=== PATIENT | male | born 1965 | race Caucasian/White ===

== ENCOUNTER 2023-11-23 12:25 | Emergency (ER) | payer MEDICARE, SELFPAY ==
[2023-11-23 12:27] VITALS: BP 162/103
[2023-11-23 13:27] VITALS: BP 145/81
[2023-11-23 13:34] LABS: % Basophils 0.6 % (0-2); % Eosinophils 1.1 % (0-6); % Immature Granulocytes 0.8 % (0-0.5); % Lymphocytes 17.9 % (20.5-51.1); % Monocytes 5.4 % (1.7-9.3); % Neutrophils 74.2 % (42.2-75.2); Absolute Eosinophils 0.1 10^3/uL (0-0.7); Absolute Immature Granulocytes 0.1 10^3/uL (0-0.05); Absolute Lymphocytes 1.3 10^3/uL (1.2-3.4); Absolute Monocytes 0.4 10^3/uL (0.1-0.6); Absolute Neutrophils 5.3 10^3/uL (1.4-6.5); Hematocrit 41.3 % (39.0-52.0); Hemoglobin 14.8 g/dL (13.0-18.0); Mean Corp Hgb Conc. 35.8 g/dL (33.0-37.0); Mean Corpuscular Hgb 33.9 pg (27.0-31.0); Mean Corpuscular Volume 94.7 fL (80.0-94.0); Mean Platelet Volume 9.1 fL (7.4-10.4); Nucleated Red Blood Cells % 0 % (-); Platelet Count 207 10^3/uL (130-400); Red Blood Cell Count 4.36 10^6/uL (4.70-6.10); White Blood Cell Count 7.2 10^3/uL (4.8-10.8)
--- NOTE | 2023-11-23 13:34 | ED.GENMED ---
History of Present Illness
General
Chief Complaint: Ear Problem
Source: patient
Time Seen by Provider: 11/23/23 12:39
Travel History
Have you had any contact with someone who has COVID-19?: No
Do you have any symptoms of coronavirus? Fever > 100 degrees, chills, cough, shortness of breath, sore throat, loss of taste or smell, muscle aches, or headache?: No
History of Present Illness
History of Present Illness:
58-year-old male with past medical history of hypertension, previous renal cancer status post right nephrectomy presenting to the emergency department for evaluation of right-sided ear pain/erythema that he states has been ongoing for around a month
but states he has also had a year or so of symptoms including pain to the right occipital/temporal region which she states he is not sure if this is related. He notes that he has brought this up to his primary care physician in the past but that
his primary care provider in April and he has yet to make an appointment with his new primary care provider. Patient went to urgent care around a month ago and was diagnosed with a cellulitis of the right ear for which he completed a
10-day course of but reports no relief with this. Patient denies any fevers, chills, rigors. He states that he is very concerned that he could have a potential cancer given his history as well as family history with multiple different types of
malignancies.
Past History
Past History
ED Past Medical History: Cancer, GERD and HTN
ED Past Surgical History: Appendectomy and Other
Social History
Tobacco: Non-smoker
Alcohol: None
Drug: None
Personal: Single
Living: with family
Review of Systems
Review of Systems
All Other Systems: ROS reviewed and negative except as documented in HPI and ROS
Phy Exam
Physical Exam
Physical Exam:
GENERAL: Alert , in no apparent distress
EYE: Clear conjunctiva
NECK: Supple, no significant adenopathy.
ENT: o/p clr, mmm. Right helix is erythematous and mildly edematous with minimal tenderness. The mastoid is non tender and nonbulging. Right TM is partially visualized from the 6:00 to 12 o'clock position but unable to see from 12:00 to 5:00 due
to cerumen. Left external ear and TM are within normal limits
CARDIAC: Regular rate and rhythm .
LUNGS: Clear breath sounds bilaterally, no acute respiratory distress, no wheezes/rales/rhonchi
NEUROLOGICAL: Alert and oriented
SKIN: Warm and dry, skin intact.
MUSCULOSKELETAL: No edema, well perfused.
PSYCH: Normal and appropriate interaction.
Course
Orders/Labs/Results
Orders:
Orders
11/23/23 13:12
CT Facial Bones W/o Iv Contras Urgent
Comment:
Reason For Exam: possible mastoiditis
11/23/23 13:22
Basic Metabolic Panel Urgent
Complete Blood Count/With Diff Urgent
Abnormal Lab Results
11/23/23
13:22
RBC 4.36 L 10^6/uL
(4.70-6.10)
MCV 94.7 H fL
(80.0-94.0)
MCH 33.9 H pg
(27.0-31.0)
Abs Immat Gran (auto) 0.1 H 10^3/uL
(0-0.05)
Immature Gran % 0.8 H %
(0-0.5)
Lymphocytes % 17.9 L %
(20.5-51.1)
11/23/23 13:22
11/23/23 13:22
Vital Signs
Initial and Last Documented VS:
Initial Vital Signs
Temp Pulse Resp BP Pulse Ox
98.2 F 78 18 162/103 100
11/23/23 12:27 11/23/23 12:27 11/23/23 12:27 11/23/23 12:27 11/23/23 12:27
Last Documented Vital Signs
Temp Pulse Resp BP Pulse Ox
98.2 F 60 18 145/81 99
11/23/23 12:27 11/23/23 13:27 11/23/23 13:27 11/23/23 13:27 11/23/23 13:27
MDM/Problems Addressed
Differential Diagnosis Includes:
Dermatitis, less concern for cellulitis given lack of movement with p.o. antibiotics, otitis media, otitis externa, mastoiditis
MDM/Problems Addressed:
58-year-old male present emergency department for a multitude of chronic symptoms, feels as if the right ear is worsening prompting him to come to the ER today. Has lack of outpatient follow-up due to his primary care passing away however he has
not made an appointment with his new primary care physician yet. Will obtain labs and a CT of the facial bones to ensure no mastoiditis. I do anticipate need for continued outpatient workup and will provide patient with information for ENT.
*Radiology
Radiology exam reviewed: radiology read reviewed
*Pulse Oximetry
Patient hypoxic: no
*Critical Care Note
Total Time (30-74mins, 75-104mins- exclusive of procedures): Not Applicable
Data Reviewed
Review of Other/Old Records Reveals: Labs
Source: patient
Patient Management
Escalation/DeEscalation of care consider admission/obs:
Patient CT scan did not show any evidence for mastoiditis. It did note the soft tissue swelling of the right ear which could be an inflammatory or infectious process. I reviewed this CT scan report with the patient. He notes that he only had the
Keflex for about 3 days which would certainly be a subtherapeutic dose and a potential reason as to why his infection did not improve. Will give patient a 10-day course of Keflex to be taken 3 times daily. I provided him with information for ENT
to follow-up with. He is aware of return precautions to the emergency department but otherwise stable for discharge home.
ED Attending Note
-
Portions of this chart may have been created with voice recognition software.� Occasional wrong word or��sound alike� substitutions may have occurred due to the inherent limitations of voice recognition software.
Discharge Plan
Departure
Patient Disposition: Home (Routine Discharge)
Date of Disposition: 11/23/23
Time of Disposition: 14:48
Patient with high blood pressure during this ER visit?: Yes
Discharge Problem:
Cellulitis of right ear
Instructions: Cellulitis (Skin Infection), Adult (DC)
Prescriptions:
New
cephalexin 500 mg tablet
500 mg PO TID 10 Days Qty: 30 0RF
No Action
difluprednate 0.05 % Drops
1 drp OPHTHALMIC (EYE) QID
Rx Instructions:
Left eye
colchicine 0.6 mg Tablet
0.6 mg PO BID Qty: 180 0RF
ibuprofen 600 mg Tablet
600 mg PO TID Qty: 21 0RF
nicotine 21 mg/24 hr Patch 24 Hour
21 mg transdermal DAILY Qty: 28 0RF
Referrals:
Chilo Yeh MD [Active] - (ENT - Please call for appointment)
NONE,* [Family Provider] -
Interventions
Interventions:
*Risk Screen - Suicide Last Done: 11/23/23 12:27
*General Assessment Last Done: 11/23/23 12:27
*Neglect/Abuse Screening Last Done: 11/23/23 12:27
ED- Fall Risk Assessment Last Done: 11/23/23 13:43
*ED COVID-19 Vaccine History Last Done: 11/23/23 12:27
*Nursing Disposition Last Done: 11/23/23 14:52
Discharge Date and Time
Discharge Date/Time: 11/23/23 14:53
Print Language: FRENCH
[2023-11-23 13:45] LABS: Blood Urea Nitrogen 15 mg/dl (9-20); Calcium 9.6 mg/dl (8.4-10.2); Carbon Dioxide 29 mmol/L (22-30); Chloride 106 mmol/L (98-107); Glucose 74 mg/dl (70-99); Potassium 4.5 mmol/L (3.5-5.1); Sodium 139 mmol/L (135-145); eGFR > 60.00
== END 2023-11-23 14:53 | disposition home or self-care (01) ==
LOC: EMR 12:25
PROVIDERS: Physician Assistant Medical; EMERGENCY PHYSICIAN Emergency Medicine
DX: H60.11 Cellulitis of right external ear (principal); I10 Essential (primary) hypertension
CPT/HCPCS: 99284; 70486; 80048; 85025

== ENCOUNTER 2024-09-01 14:50 | Inpatient (IN) | payer MEDICARE, SELFPAY ==
[2024-09-01 09:53] VITALS: BP 163/92
--- NOTE | 2024-09-01 10:43 | ED.GENMED ---
History of Present Illness
<Radha Alexis PA-C - Last Filed: 09/01/24 23:59>
General
Chief Complaint: Eye Problems
Source: patient
Exam Limitations: none
Time Seen by Provider: 09/01/24 10:23
Nursing documentation reviewed up to this point in time: agreed with
History of Present Illness
History of Present Illness:
Patient is a 59 year old male w/ hx RA presenting with pain and swelling of right eye. Patient reports around 2 PM yesterday noticing mild blurry vision/pain in his right eye that he describes as a 'straining'. This morning�patient states he woke
up at 2 AM and his eye was swollen shut. He reports significant pain/deep pressure sensation behind his right eye and feels like it is being 'pulled forward'. Patient has noticed mild redness within the eye and clear drainage from the eye. He
does feel like he has blurry/decreased vision in his right eye in comparison to his left. Patient states he has felt chills all morning and had 1 episode of vomiting. He denies any fever.
Patient denies any headache, double vision, ear pain. No recent URI symptoms.
Past History
<Radha Alexis PA-C - Last Filed: 09/01/24 23:59>
Past History
ED Past Medical History: Cancer, GERD and HTN
ED Past Surgical History: Appendectomy and Other
Social History
Tobacco: Non-smoker
Alcohol: None
Drug: None
Personal: Single
Living: with family
Review of Systems
<Radha Alexis PA-C - Last Filed: 09/01/24 23:59>
Review of Systems
Allergies reviewed?: Yes
All Other Systems: ROS reviewed and negative except as documented in HPI and ROS
Phy Exam
<Radha Alexis PA-C - Last Filed: 09/01/24 23:59>
Physical Exam
Physical Exam:
Vitals: Hypertensive, otherwise stable vital signs. Afebrile
General: Patient is well appearing, no acute distress
Skin: Warm and dry, no rashes or lesions
Head: Normocephalic, atraumatic. No tenderness over temporal region bilaterally.
Eyes: Mild periorbital swelling and erythema of right upper lid with injected right eye and chemosis. Mild proptosis of right eye. Left eye without any periorbital swelling, erythema, or tenderness. Right eye pain with EOMs, although intact.
Cornea is clear without opacities. Anterior chambers are clear without hyphema or Hypopyon, PERRL, no APD.
Fundoscopic exam is unremarkable with no papilledema. IOP is R 19, L 17.
Throat: Protecting airway
Neck: Normal ROM, no cervical spine tenderness, no meningismus
Cardiac: Regular rate and rhythm, no murmurs.
Pulm: Normal respiratory effort, no wheezes, rales, rhonchi heard on exam.
Abdomen: No abdominal tenderness.
Extremities: No evidence of cyanosis or edema
Neuro: AAOx3. CN II-XII intact. No focal neurologic deficits.
Psychiatric: Normal affect.
Course
<Radha Alexis PA-C - Last Filed: 09/01/24 23:59>
Orders/Labs/Results
Orders:
Orders
09/01/24 Breakfast
Regular
At Your Request: Full Participation
09/01/24 10:[address] [CT Orbits With Iv Contrast] Urgent
Comment:
Reason For Exam: right eye pain, swelling
Visual Acuity- Treatment ONCE
Acetaminophen [Tylenol] 650 mg PO NOW STA
09/01/24 11:12
Complete Blood Count/With Diff Urgent
Comprehensive Metabolic Panel Urgent
09/01/24 13:57
Ketorolac [Toradol] 15 mg IV NOW STA
09/01/24 14:06
Vancomycin [Vancocin] 1,500 mg 0.9% Sodium Chloride 500 ml [Nss] 500 ml IV NOW
09/01/24 14:08
Ampicillin/Sulbactam 3 G [Unasyn] 3 gm 0.9% Sodium Chloride 100 ml [Nss] 100 ml IV NOW
09/01/24 14:30
Admit/Transfer Patient As Directed
Co-Sign Provider:
Level of Care: Inpatient admission
Assign to:: Medical/Surgical
Physician / Group: ginger
Diagnosis: periorbital cellulitis
Reason for Hospitalization: periorbital cellulitis
Expected length of stay greater than two midnights?: Yes
ELOS- Estimated Length of Stay in days: 3
I certify the patient meets the requirements for IP care: Yes
09/01/24 14:31
Code Status As Directed
Resuscitation Status: Full Code
PRN Pain Medication Management As Directed
May give lesser potent ordered pain med per pt: Yes
preference::
Protocol:: Medication orders for pain may be administered in a
manner that supports deferring to patient preference
when the pt is:
- Requesting an ordered lesser potent pain medication.
Least to most potent pain medications are defined
as: acetaminophen < NSAID < tramadol < opioids
(morphine, oxycodone, hydromorphone).
- Requesting a lesser dose of the same medication IF
ORDERED.
- Requesting a less intrusive route of administration
if both routes are prescribed by the provider (PO <
IV).
09/01/24 16:24
Oxycodone [Roxicodone] 5 mg PO Q4HPRN PRN
09/01/24 19:16
Acetaminophen [Tylenol] 650 mg PO Q4HPRN PRN
Bisacodyl [Dulcolax] 10 mg RECTAL [id number] PRN
Docusate W/Senna [Senokot-S] 1 tablet PO BIDPRN PRN
Polyethylene Glycol Powder [Miralax] 17 grams PO DAILYPRN PRN
09/01/24 19:16
Activity As Directed
Activity Level: As Tolerated
Venous Foot Pumps As Directed
Location: Bilateral feet
Vital Signs As Directed
Frequency: Per unit guidelines
DX Deep Vein Thrombosis Video Routine
09/02/24 00:00
Ampicillin/Sulbactam 3 G [Unasyn] 3 gm 0.9% Sodium Chloride 100 ml [Nss] 100 ml IV Q6
Abnormal Lab Results
09/01/24
11:12
RBC 4.35 L 10^6/uL
(4.70-6.10)
MCV 96.8 H fL
(80.0-94.0)
MCH 34.3 H pg
(27.0-31.0)
Abs Immat Gran (auto) 0.1 H 10^3/uL
(0-0.05)
Immature Gran % 0.7 H %
(0-0.5)
Neutrophils % 75.6 H %
(42.2-75.2)
Lymphocytes % 17.5 L %
(20.5-51.1)
Creatinine 0.6 L mg/dL
(0.7-1.3)
Glucose 112 H mg/dl
(70-99)
Albumin 5.1 H g/dl
(3.5-5.0)
09/01/24 11:12
09/01/24 11:12
Vital Signs
Initial and Last Documented VS:
Initial Vital Signs
Temp Pulse Resp BP Pulse Ox
97.9 F 71 16 163/92 99
09/01/24 09:53 09/01/24 09:53 09/01/24 09:53 09/01/24 09:53 09/01/24 09:53
Last Documented Vital Signs
Temp Pulse Resp BP Pulse Ox
97.8 F 60 17 120/75 95
09/02/24 07:50 09/02/24 07:50 09/02/24 07:50 09/02/24 07:50 09/02/24 07:50
<Marc Guerrero MD - Last Filed: 09/02/24 10:12>
Orders/Labs/Results
Orders:
Orders
09/01/24 Breakfast
Regular
At Your Request: Full Participation
09/01/24 10:[address] [CT Orbits With Iv Contrast] Urgent
Comment:
Reason For Exam: right eye pain, swelling
Visual Acuity- Treatment ONCE
Acetaminophen [Tylenol] 650 mg PO NOW STA
09/01/24 11:12
Complete Blood Count/With Diff Urgent
Comprehensive Metabolic Panel Urgent
09/01/24 13:57
Ketorolac [Toradol] 15 mg IV NOW STA
09/01/24 14:06
Vancomycin [Vancocin] 1,500 mg 0.9% Sodium Chloride 500 ml [Nss] 500 ml IV NOW
09/01/24 14:08
Ampicillin/Sulbactam 3 G [Unasyn] 3 gm 0.9% Sodium Chloride 100 ml [Nss] 100 ml IV NOW
09/01/24 14:30
Admit/Transfer Patient As Directed
Co-Sign Provider:
Level of Care: Inpatient admission
Assign to:: Medical/Surgical
Physician / Group: [email or web address]
Diagnosis: periorbital cellulitis
Reason for Hospitalization: periorbital cellulitis
Expected length of stay greater than two midnights?: Yes
ELOS- Estimated Length of Stay in days: 3
I certify the patient meets the requirements for IP care: Yes
09/01/24 14:31
Code Status As Directed
Resuscitation Status: Full Code
PRN Pain Medication Management As Directed
May give lesser potent ordered pain med per pt: Yes
preference::
Protocol:: Medication orders for pain may be administered in a
manner that supports deferring to patient preference
when the pt is:
- Requesting an ordered lesser potent pain medication.
Least to most potent pain medications are defined
as: acetaminophen < NSAID < tramadol < opioids
(morphine, oxycodone, hydromorphone).
- Requesting a lesser dose of the same medication IF
ORDERED.
- Requesting a less intrusive route of administration
if both routes are prescribed by the provider (PO <
IV).
09/01/24 16:24
Oxycodone [Roxicodone] 5 mg PO Q4HPRN PRN
09/01/24 19:16
Acetaminophen [Tylenol] 650 mg PO Q4HPRN PRN
Bisacodyl [Dulcolax] 10 mg RECTAL [id number] PRN
Docusate W/Senna [Senokot-S] 1 tablet PO BIDPRN PRN
Polyethylene Glycol Powder [Miralax] 17 grams PO DAILYPRN PRN
09/01/24 19:16
Activity As Directed
Activity Level: As Tolerated
Venous Foot Pumps As Directed
Location: Bilateral feet
Vital Signs As Directed
Frequency: Per unit guidelines
DX Deep Vein Thrombosis Video Routine
09/02/24 00:00
Ampicillin/Sulbactam 3 G [Unasyn] 3 gm 0.9% Sodium Chloride 100 ml [Nss] 100 ml IV Q6
Abnormal Lab Results
09/01/24
11:12
RBC 4.35 L 10^6/uL
(4.70-6.10)
MCV 96.8 H fL
(80.0-94.0)
MCH 34.3 H pg
(27.0-31.0)
Abs Immat Gran (auto) 0.1 H 10^3/uL
(0-0.05)
Immature Gran % 0.7 H %
(0-0.5)
Neutrophils % 75.6 H %
(42.2-75.2)
Lymphocytes % 17.5 L %
(20.5-51.1)
Creatinine 0.6 L mg/dL
(0.7-1.3)
Glucose 112 H mg/dl
(70-99)
Albumin 5.1 H g/dl
(3.5-5.0)
09/01/24 11:12
09/01/24 11:12
Vital Signs
Initial and Last Documented VS:
Initial Vital Signs
Temp Pulse Resp BP Pulse Ox
97.9 F 71 16 163/92 99
09/01/24 09:53 09/01/24 09:53 09/01/24 09:53 09/01/24 09:53 09/01/24 09:53
Last Documented Vital Signs
Temp Pulse Resp BP Pulse Ox
97.8 F 60 17 120/75 95
09/02/24 07:50 09/02/24 07:50 09/02/24 07:50 09/02/24 07:50 09/02/24 07:50
<Radha Alexis PA-C - Last Filed: 09/01/24 23:59>
MDM/Problems Addressed
Differential Diagnosis Includes:
Not limited to: Viral conjunctivitis, bacterial conjunctivitis, preseptal cellulitis, orbital cellulitis, etc.
MDM/Problems Addressed:
59 year old male with erythema, pain, and swelling of right eye with mild impairment in vision. No fevers or chills. Patient does feel as if symptoms have progressed somewhat rapidly since onset <24 hours ago. Hypertensive, otherwise vitals stable.
Patient afebrile. Physical exam as above. Patient with obvious preseptal cellulitis of right eye with chemosis and injection of right eye. + pain with EOMs. IOP wnl. Concern for orbital cellulitis. Will check labs and CT orbit w/ contrast. Will
closely monitor and reassess.
Update: Labs reviewed. No clinically significant abnormalities. CT reviewed - findings consistent with preseptal cellulitis of right eye although also noted mild proptosis of right eye and stranding of right medial rectus. On reexamination - right
eye appears clinically worse (increasing erythema, edema surrounding eye as well as more noticable proptosis) within 2 hours since initial exam. Given rapid expansion along with immunosuppression on MTX for rheumatoid arthritis - concern for
developing orbital cellulitis. Will admit patient for IV abx and further management. IV vancomycin and unasyn initiated in ED.
Chronic conditions affecting care:
Hypertension
Acute Exacerbation and/or Progression of Chronic Illness:
Acutely hypertensive
<Radha Alexis PA-C - Last Filed: 09/01/24 23:59>
*Radiology
Radiology exam reviewed: radiology read reviewed
*Pulse Oximetry
Patient hypoxic: no
*EKG
Interpreted by ED Provider?: NA
*Copyman Interpretation
Rate: Copyman- N/A
*Critical Care Note
Total Time (30-74mins, 75-104mins- exclusive of procedures): Not Applicable
<Radha Alexis PA-C - Last Filed: 09/01/24 23:59>
Patient Management
Discussion with other providers: Hospitalist
Escalation/DeEscalation of care consider admission/obs:
Admit for IV antibiotics
ED Attending Note
<Radha Alexis PA-C - Last Filed: 09/01/24 23:59>
-
Portions of this chart may have been created with voice recognition software.� Occasional wrong word or��sound alike� substitutions may have occurred due to the inherent limitations of voice recognition software.
<Marc Guerrero MD - Last Filed: 09/02/24 10:12>
ED Attending Note
Patient seen and examined by attending physician: Yes
ED Attending Note:
Patient with history of rheumatoid arthritis, presents to ED secondary to sudden onset of right eye swelling, redness, and pain yesterday afternoon. Denies trauma. Denies fever or chills. Patient reports mild blurry vision since onset of his
symptoms. Denies nausea or vomiting. Denies sick contact. Denies recent illness. Denies previous history of similar symptoms.
Physical Exam
General: mild painful distress, not acutely ill. afebrile
Head: nc/at. eomi
Neck: supple. no meningeal signs.
Neuro: alert and oriented x 3. no focal neurological deficits
Skin: right eye periorbital redness and swelling noted with tenderness. Injected conjunctiva noted.
Psychiatric: well kept. interactive and cooperative
Extremities: no edema. no calf tenderness.
CT orbit report reviewed and discussed with patient. Redness and swelling appear to be worsening during observation ED. As such, patient will be admitted for IV antibiotics.
Visual acuity checked. Intraocular pressure within normal limits.
Discharge Plan
Departure
Patient Disposition: Admit
Date of Disposition: 09/01/24
Time of Disposition: 13:59
Presentation/result/management discussed w/ accepting MD/DO: Hospitalist
Discharge Problem:
Preseptal cellulitis of right eye
Interventions
Interventions:
*Risk Screen - Suicide Last Done: 09/01/24 20:30
*General Assessment Last Done: 09/01/24 11:15
*Neglect/Abuse Screening Last Done: 09/01/24 09:53
ED- Fall Risk Assessment Last Done: 09/01/24 11:10
*ED COVID-19 Vaccine History Last Done: 09/01/24 20:30
*Nursing Disposition Last Done: 09/01/24 19:25
Discharge Date and Time
Discharge Date/Time: 09/01/24 19:15
[2024-09-01 11:06] VITALS: BMI 19.8
[2024-09-01] MEDS: TYLENOL 650 MG PO (11:16)
[2024-09-01 11:22] LABS: % Basophils 0.3 % (0-2); % Eosinophils 0.6 % (0-6); % Immature Granulocytes 0.7 % (0-0.5); % Lymphocytes 17.5 % (20.5-51.1); % Monocytes 5.3 % (1.7-9.3); % Neutrophils 75.6 % (42.2-75.2); Absolute Immature Granulocytes 0.1 10^3/uL (0-0.05); Absolute Lymphocytes 1.3 10^3/uL (1.2-3.4); Absolute Monocytes 0.4 10^3/uL (0.1-0.6); Absolute Neutrophils 5.4 10^3/uL (1.4-6.5); Hematocrit 42.1 % (39.0-52.0); Hemoglobin 14.9 g/dL (13.0-18.0); Mean Corp Hgb Conc. 35.4 g/dL (33.0-37.0); Mean Corpuscular Hgb 34.3 pg (27.0-31.0); Mean Corpuscular Volume 96.8 fL (80.0-94.0); Mean Platelet Volume 8.8 fL (7.4-10.4); Nucleated Red Blood Cells % 0 % (-); Platelet Count 187 10^3/uL (130-400); Red Blood Cell Count 4.35 10^6/uL (4.70-6.10); White Blood Cell Count 7.2 10^3/uL (4.8-10.8)
[2024-09-01 11:41] LABS: ALT (SGPT) 14 U/L (0-50); AST (SGOT) 17 U/L (17-59); Albumin 5.1 g/dl (3.5-5.0); Alkaline Phosphatase 98 U/L (38-126); Blood Urea Nitrogen 12 mg/dl (9-20); Calcium 9.8 mg/dl (8.4-10.2); Carbon Dioxide 26 mmol/L (22-30); Chloride 104 mmol/L (98-107); Estimated Creatinine Clearance 124 ml/min; Glucose 112 mg/dl (70-99); Potassium 4.6 mmol/L (3.5-5.1); Sodium 141 mmol/L (135-145); Total Bilirubin 0.9 mg/dl (0.2-1.3); Total Protein 8.1 g/dl (6.3-8.2); eGFR > 60.00
[2024-09-01 12:00] VITALS: BP 139/84
--- NOTE | 2024-09-01 14:05 | HPS.HSE ---
Family Physician
-
Family Physician: * NONE
Chief Complaint
-
Right eye pain and swelling
History of Present Illness
59 year old male w/ hx RA presenting with pain and swelling of right eye. yesterday he noticed mild blurry vision/pain in his right eye. he was straining his eye to read. today morning he woke up with swollen eye. He reports significant pain/deep
pressure sensation behind his right eye. Patient has noticed mild redness within the eye and clear drainage from the eye. He does feel like he has blurry vision in his right eye. patient vomited once today. he is having SERNA. denied fever, chest
pain,sob. denied
abdominal pain,n,v,d. denied dysuria or hematuria.
CT with the impression of Some minor right preorbital soft tissue swelling suggesting preorbital cellulitis. Patient received Vanco and Zosyn in ER. Admitted for further management
Medical History
Past Medical History
Past Medical History: Reports Other
Additional Past Medical History:
Rheumatoid arthritis
Renal carcinoma
Osteoarthritis
Past Surgical History: Reports Other
Additional Past Surgical History:
Right-sided nephrectomy
Social History
Tobacco: Smoker
Alcohol: Occasional
Drug: None
Family History
Family History: Not pertinent
Allergies / Home Medications
Allergies reflects when Allergies were last updated in [facility].
Home Medications with original date entered in [facility]
Allergy/Medication List:
Allergies
Allergy/AdvReac Type Severity Reaction Status Date / Time
No Known Allergies Allergy Verified 11/23/23 12:29
Home Medications
difluprednate 0.05 % eye drops 1 drp ophthalmic (eye) QID Eye condition 11/23/22
colchicine 0.6 mg tablet 0.6 mg PO BID #180 tabs 11/24/22
ibuprofen 600 mg tablet 600 mg PO TID #21 tabs 11/24/22
nicotine 21 mg/24 hr daily transdermal patch 21 mg transdermal DAILY #28 ea 11/24/22
cephalexin 500 mg tablet 500 mg PO TID 10 days #30 tabs 11/23/23
Review of Systems
-
Constitutional: Reports No Symptoms
EENT: Reports Other (righ eye swollen and red)
Respiratory: Reports No Symptoms
Cardiac: Reports No Symptoms
Abdomen/GI: Reports No Symptoms
: Reports No Symptoms
Musculoskeletal: Reports No Symptoms
Skin: Reports No Symptoms
Neurological: Reports No Symptoms
Endocrine: Reports No Symptoms
Hematologic/Lymphatic: Reports No Symptoms
Psych: Reports No Symptoms
Physical Exam
Vital Signs
Vital Signs
Temp Pulse Resp BP Pulse Ox
97.9 F 64 17 163/92 99
09/01/24 09:53 09/01/24 11:15 09/01/24 11:15 09/01/24 09:53 09/01/24 11:15
Physical Exam
General: Well Developed, Well Nourished and No Apparent Distress
HEENT: NormoCephalic, Moist mucous membranes, Atraumatic and Other (right eye swollen and red)
Respiratory: Clear
Cardiac: S1/S2 and Regular Rhythm; No Murmur or Rub
GI: Soft, Non Tender, Non Distended and Normal Bowel Sounds; No Organomegaly
Rectal: Deferred by Provider
Musculoskeletal: No Clubbing, No Cyanosis and No Edema
Skin: No Rash
Neuro: AO x 3 and Nonfocal/grossly intact
Psych: Calm
Laboratory Results
-
09/01/24 11:12
09/01/24 11:12
Laboratory Results
Total Bilirubin 0.9 mg/dl (0.2-1.3) 09/01/24 11:12
AST 17 U/L (17-59) 09/01/24 11:12
ALT 14 U/L (0-50) 09/01/24 11:12
Alkaline Phosphatase 98 U/L (38-126) 09/01/24 11:12
Data Reviewed
-
CT Scan: Report Reviewed by me
Lab Data: Labs Reviewed by me
Impression/Plan
-
#periorbital cellulitis of right eye concerning for developing orbital cellulitis
-iv vanco and Unasyn continued
-CT orbits with Some minor right periorbital soft tissue swelling suggesting periorbital cellulitis.Soft tissue stranding and slight prominence/enlargement of the right medial rectus muscle and CT findings suggesting some right sided proptosis.
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 Unfortunately, other etiologies such as orbital Lymphoma cannot be excluded.
-Tylenol continued for fever and pain
-oxy continued for pain
#History of Right-Sided Renal Cell Carcinoma s/p Right Nephrectomy
Left Solitary Kidney per patient
#Osteoarthritis
Chronic Pain Syndrome
#Current Tobacco Use
-Nicotine patch
#DVT prophylaxis
-scd
#CODE status
-full code
[2024-09-01] MEDS: TORADOL 15 MG IV (14:19)
[2024-09-01] MEDS: VANCOCIN 530 MG IV (14:20)
--- NOTE | 2024-09-01 15:10 | W.PN.UPDATE ---
Update Note
Progress Note Update
Attending note
Patient seen independently
59 year old man with pain and swelling of right eye. Yesterday he had mild blurry vision/pain in his right eye. Today morning he woke up with a very swollen eye. He reports significant pain/deep pressure sensation behind his right eye. Patient has
noticed redness within the eye and drainage from the eye. He vomited once today. he is having a SERNA. He denied fever, chest pain,sob. denied abdominal pain,n,v,d. denied dysuria or hematuria. CT in the ED showed:
Some minor right preorbital soft tissue swelling suggesting preorbital cellulitis.
Soft tissue stranding and slight prominence/enlargement of the right medial rectus muscle and CT findings suggesting some right sided proptosis.
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
Unfortunately, other etiologies such as orbital Lymphoma cannot be excluded.
Patient received Vanco and Zosyn in ER. ID consulted in the ED.
Past Medical History
Rheumatoid arthritis
Renal carcinoma
Osteoarthritis
Past Surgical History: Reports Other
Additional Past Surgical History:
Right-sided nephrectomy
Physical Exam
General: Well Developed, Well Nourished and No Apparent Distress
HEENT: NormoCephalic, Moist mucous membranes, Atraumatic left and right eye swollen and red with drainage
Respiratory: Clear
Cardiac: S1/S2 and Regular Rhythm; No Murmur or Rub
GI: Soft, Non Tender, Non Distended and Normal Bowel Sounds; No Organomegaly
Psych: Calm
Impression/Plan
1. periorbital cellulitis of right eye concerning for developing orbital cellulitis
-iv vanco and Unasyn continued
-Tylenol continued for fever and pain
-oxy continued for pain
Please see [employer] note for full details on
History of Right-Sided Renal Cell Carcinoma s/p Right Nephrectomy
Osteoarthritis
Chronic Pain Syndrome
Current Tobacco Use
DVT prophylaxis -scd
CODE status -full code
[2024-09-01] MEDS: UNASYN IV ×2 (16:23→23:53)
[2024-09-01] MEDS: ROXICODONE 5 MG PO (16:30)
[2024-09-01] MEDS: NICODERM TRANSDERMAL 21 MG TRANSDERM (16:32)
[2024-09-01] MEDS: FLUSH (NSS) 1 FLUSH IV (16:32)
[2024-09-01] MEDS: DILAUDID 1 MG IV ×2 (18:16→21:54)
[2024-09-01 18:18] VITALS: BP 190/91
[2024-09-01] MEDS: APRESOLINE 10 MG IV (18:27)
[2024-09-01 19:15] VITALS: BP 139/100; BMI 19.4
--- NOTE | 2024-09-01 19:15 | W.PN.UPDATE ---
Update Note
Progress Note Update
d/w ophthalmology, recommended to start steroids.
--- NOTE | 2024-09-01 19:20 | PHA.VAN.IN ---
Assessment
- Assessment
Renal Function: Appears similar to baseline
Concomitant Antimicrobials: ampicillin/sulbactam
AUC Dosing Plan
- Dosing Variables
Dosing Weight (kg): 77.6
Dosing CrCl (ml/min): 124
Vd coefficient (L/kg): 0.7
Utilized IBW for dosing weight for BMI < 20
- Empiric Dosing
Initial / Loading Dose: 1500mg - 09/01 14:20
Maintenance Regimen: Vanc 1250mg Q12H starting 09/02 0600
Estimated AUC (mcg*h/mL): 463
Estimated Peak (mcg*h/mL): 31.8
Estimated Trough (mcg/ml): 10.3
Estimated Half Life (H): 6.5
- Monitoring
No levels ordered at this time: consider levels in next few days
Pharmacokinetics Vancomycin I
- -
Patient Age: 59
Patient Sex: Male
Vancomycin Day #: 1
Indication: Skin And Soft Tissue
Requesting Provider: Rey Fofana
Pertinent Antimicrobial Allergies:
NKDA
Height / Weight:
Height 6 ft
Actual Weight 66 kg
IBW in k.6
Pertinent Past Medical History: BMI ~19.7, R. RCC s/p R. Nephrectomy
- Vital Signs / Lab Results
Temp Pulse Resp BP Pulse Ox
97.9 F 68 18 190/91 95
09/01/24 09:53 09/01/24 18:18 09/01/24 18:18 09/01/24 18:18 09/01/24 17:15
Lab Results - Hematology
09/01/24
11:12
WBC 7.2
Lab Results - Chemistry
09/01/24
11:12
BUN 12
Creatinine 0.6 L
Estimated Creat Clear 124
Albumin 5.1 H
[2024-09-01] MEDS: ZOFRAN 4 MG IV (20:06)
[2024-09-01] MEDS: DECADRON 4 MG IV (20:07)
[2024-09-01] MEDS: DECADRON 8 MG IV (21:54)
[2024-09-01] MEDS: TUMS CHEWABLE TABLET 200 MG PO (22:50)
[2024-09-01 23:00] VITALS: BP 124/73
[2024-09-02] MEDS: UNASYN IV ×3 (05:12→18:26)
[2024-09-02] MEDS: ROXICODONE 5 MG PO (05:38)
[2024-09-02] MEDS: VANCOCIN 275 MG IV ×2 (05:51→19:26)
[2024-09-02 07:50] VITALS: BP 120/75
[2024-09-02] MEDS: NICODERM TRANSDERMAL 21 MG TRANSDERM (08:11)
[2024-09-02] MEDS: DELTASONE 60 MG PO (08:12)
[2024-09-02] MEDS: DILAUDID 1 MG IV ×2 (11:16→18:30)
--- NOTE | 2024-09-02 12:05 | W.PN.HOSP.TC ---
Today's Communication/Plan
-
c/w IV Abx
c/w Steroid
For eye doctor evaluation
Assessment / Plan
Assessment / Plan
Physical Exam
General: Well Developed, Well Nourished and No Apparent Distress
HEENT: NormoCephalic, Moist mucous membranes, Atraumatic and Other (right eye swollen and red)
Respiratory: Clear
Cardiac: S1/S2 and Regular Rhythm; No Murmur or Rub
GI: Soft, Non Tender, Non Distended and Normal Bowel Sounds; No Organomegaly
Rectal: Deferred by Provider
Musculoskeletal: No Clubbing, No Cyanosis and No Edema
Skin: No Rash
Neuro: AO x 3 and Nonfocal/grossly intact
Psych: Calm
#periorbital cellulitis of right eye concerning for developing orbital cellulitis
He feels better , less pain in the eye
c/w IV vanco and Unasyn
-CT orbits with Some minor right periorbital soft tissue swelling suggesting periorbital cellulitis.Soft tissue stranding and slight prominence/enlargement of the right medial rectus muscle and CT findings suggesting some right sided proptosis.
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 Unfortunately, other etiologies such as orbital Lymphoma cannot be excluded.
-Tylenol continued for fever and pain
-oxy continued for pain
- per eye doctor consult in ER , recommended oral prednsione
- Consulted eye doctor
#History of Right-Sided Renal Cell Carcinoma s/p Right Nephrectomy
Left Solitary Kidney per patient
#Osteoarthritis
Chronic Pain Syndrome
On weekly methotrexate and daily folic acid supplement
#Current Tobacco Use
-Nicotine patch
#DVT prophylaxis
-scd
#CODE status
-full code
Total time spent to see the patient, examine the patient, review data and lab results, discuss treatment plan with patient and nursing staff around 55 minutes
Anticipated Discharge: > 48 hours
Subjective/Interval History
-
Date of Service: September 02, 2024
Objective Data
-
Vital Signs:
Vital Signs
Temp Pulse Resp BP Pulse Ox
97.8 F 60 17 120/75 95
09/02/24 07:50 09/02/24 07:50 09/02/24 07:50 09/02/24 07:50 09/02/24 07:50
I&O
09/01/24 09/02/24 09/03/24
06:59 06:59 06:59
Intake Total 480 / 480 420 / 420
Balance 480 / 480 420 / 420
--- NOTE | 2024-09-02 12:06 | PHA.VAN.FU ---
Vancomycin Assessment / Plan
- Assessment
Renal Function: No New Labs Today
In the past 24 hrs, patient has been: Afebrile
Concomitant Antimicrobials: ampicillin/sulbactam
- Dosing Plan
Continue: vancomycin 1250 mg q12h - first dose 09/02 0600 after 1500 mg LD 09/01 15:35
- Monitoring Plan
No level(s) ordered at this time: consider levels after 1800 dose 09/03/24
- Follow Up
Pharmacy will continue to follow.
Vancomycin Follow UP
- -
Patient Age: 59
Patient Sex: Male
Vancomycin Day #: 2
Indication: Skin And Soft Tissue
Requesting Provider: Rey Fofana
Pertinent Antimicrobial Allergies:
NKDA
Height / Weight:
Height 6 ft
Actual Weight 64.892 kg
IBW in k.6
Pertinent Past Medical History: BMI ~19.7, R. RCC s/p R. Nephrectomy
- Vital Signs / Lab Results
Temp Pulse Resp BP Pulse Ox
97.8 F 60 17 120/75 95
09/02/24 07:50 09/02/24 07:50 09/02/24 07:50 09/02/24 07:50 09/02/24 07:50
Lab Results - Hematology
09/01/24
11:12
WBC 7.2
Lab Results - Chemistry
09/01/24
11:12
BUN 12
Creatinine 0.6 L
Estimated Creat Clear 124
Albumin 5.1 H
--- NOTE | 2024-09-02 12:55 | CM ---
Patient seen bedside.
IA completed.
Patient lives with SO in 2nd floor appartment, no elevator.
Slow onn steps.
Patient does not use and AD.
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
patient Independent prior to admission..
Patient does not have a PCP, list provided.
Per patient currenty on IV anbx but anticipates transition to oral.
Patient prefers [facility] in [place].
Plan: home no needs anticiapted.
[2024-09-02] MEDS: FOLVITE 1 MG PO (12:59)
[2024-09-02 15:25] VITALS: BP 133/74
[2024-09-02 23:00] VITALS: BP 132/75
[2024-09-02] MEDS: PEPCID 20 MG PO (23:04)
[2024-09-03] MEDS: UNASYN IV ×4 (00:11→17:22)
[2024-09-03] MEDS: ROXICODONE 5 MG PO ×5 (01:07→22:17)
[2024-09-03] MEDS: VANCOCIN 275 MG IV ×2 (05:55→18:11)
[2024-09-03] MEDS: DELTASONE 60 MG PO (06:24)
[2024-09-03] MEDS: PROTONIX 40 MG PO (06:24)
[2024-09-03] MEDS: FOLVITE 1 MG PO (06:24)
[2024-09-03] MEDS: NICODERM TRANSDERMAL 21 MG TRANSDERM (06:24)
[2024-09-03 07:20] VITALS: BP 136/86
--- NOTE | 2024-09-03 09:15 | PHA.VAN.FU ---
Vancomycin Assessment / Plan
- Assessment
Renal Function: No New Labs Today
In the past 24 hrs, patient has been: Afebrile
Concomitant Antimicrobials: ampicillin/sulbactam
- Dosing Plan
Continue: Vanc 1250mg Q12H
- Monitoring Plan
No level(s) ordered at this time: consider levels in ext few days
Monitoring Comments: possible conversion to PO antibiotics tomorrow
- Follow Up
Pharmacy will continue to follow.
Vancomycin Follow UP
- -
Patient Age: 59
Patient Sex: Male
Vancomycin Day #: 3
Indication: Skin And Soft Tissue
Requesting Provider: Rey Fofana
Pertinent Antimicrobial Allergies:
NKDA
Height / Weight:
Height 6 ft
Actual Weight 64.892 kg
IBW in k.6
Pertinent Past Medical History: BMI ~19.7, R. RCC s/p R. Nephrectomy
- Vital Signs / Lab Results
Temp Pulse Resp BP Pulse Ox
98.2 F 54 16 136/86 98
09/03/24 07:20 09/03/24 07:20 09/03/24 07:20 09/03/24 07:20 09/03/24 07:20
Lab Results - Hematology
09/01/24
11:12
WBC 7.2
Lab Results - Chemistry
09/01/24
11:12
BUN 12
Creatinine 0.6 L
Estimated Creat Clear 124
Albumin 5.1 H
--- NOTE | 2024-09-03 10:52 | W.PN.HOSP.TC ---
Today's Communication/Plan
-
dc in am
taper prednisone
CT head
c/w IV Abx for another 24 hours then dc on oral ABx.
Assessment / Plan
Assessment / Plan
Physical Exam
General: Well Developed, Well Nourished and No Apparent Distress
HEENT: NormoCephalic, Moist mucous membranes, Atraumatic and Other (right eye swollen and red)
Respiratory: Clear
Cardiac: S1/S2 and Regular Rhythm; No Murmur or Rub
GI: Soft, Non Tender, Non Distended and Normal Bowel Sounds; No Organomegaly
Rectal: Deferred by Provider
Musculoskeletal: No Clubbing, No Cyanosis and No Edema
Skin: No Rash
Neuro: AO x 3 and Nonfocal/grossly intact
Psych: Calm
#periorbital cellulitis of right eye concerning for developing orbital cellulitis
He feels better , less pain in the eye
Good clinical improvement over night, will do another 24 hours of IV ABX then dc home
d/w eye doctor Dr Pereira who evaluated the patient on 09/02 at bed side. Ok to taper oral steroid, f/w in office
c/w IV vanco and Unasyn
-CT orbits with Some minor right periorbital soft tissue swelling suggesting periorbital cellulitis.Soft tissue stranding and slight prominence/enlargement of the right medial rectus muscle and CT findings suggesting some right sided proptosis.
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 Unfortunately, other etiologies such as orbital Lymphoma cannot be excluded.
-Tylenol continued for fever and pain
- Appreciate Dr Pereira help
# Chronic dizziness
pt was concerned and asked for further studies, was told he had vertigo. He requested mRI brain, i d/w him, recommenced to d/w his doctors as OP since he is still having orbital edema, prefer to let inflammation subside. Will do head CT scan as pt
was anxious.
#History of Right-Sided Renal Cell Carcinoma s/p Right Nephrectomy
Left Solitary Kidney per patient
#Osteoarthritis
Chronic Pain Syndrome
On weekly methotrexate and daily folic acid supplement
#Current Tobacco Use
-Nicotine patch
#DVT prophylaxis
-scd. Add SQ heparin
#CODE status
-full code
Total time spent to see the patient, examine the patient, review data and lab results, discuss treatment plan with patient and nursing staff around 55 minutes
Anticipated Discharge: Within 24 hours
Subjective/Interval History
-
Date of Service: September 03, 2024
less swelling and pain in right eye
Objective Data
-
Vital Signs:
Vital Signs
Temp Pulse Resp BP Pulse Ox
98.2 F 54 16 136/86 98
09/03/24 07:20 09/03/24 07:20 09/03/24 07:20 09/03/24 07:20 09/03/24 07:20
I&O
09/02/24 09/03/24 09/04/24
06:59 06:59 06:59
Intake Total 480 / 480 1560 / 1560
Balance 480 / 480 1560 / 1560
--- NOTE | 2024-09-03 14:31 | CM ---
Continues on IV anbx and steroid taper.
no dc needs anticipated.
Plan home no needs.
[2024-09-03 15:10] VITALS: BP 154/70
[2024-09-03] MEDS: PEPCID 20 MG PO (22:14)
[2024-09-03 23:00] VITALS: BP 116/70
[2024-09-04] MEDS: UNASYN IV ×2 (00:08→05:48)
[2024-09-04] MEDS: ROXICODONE 5 MG PO ×2 (04:24→12:24)
[2024-09-04] MEDS: VANCOCIN 275 MG IV (05:48)
[2024-09-04 07:00] VITALS: BP 144/79
[2024-09-04] MEDS: DELTASONE 20 MG PO (08:18)
[2024-09-04] MEDS: PROTONIX 40 MG PO (08:18)
[2024-09-04] MEDS: FOLVITE 1 MG PO (08:18)
[2024-09-04] MEDS: NICODERM TRANSDERMAL 21 MG TRANSDERM (08:18)
--- NOTE | 2024-09-04 10:37 | W.PN.HOSP.TC ---
Today's Communication/Plan
-
dc
Assessment / Plan
Assessment / Plan
Physical Exam
General: Well Developed, Well Nourished and No Apparent Distress
HEENT: NormoCephalic, Moist mucous membranes, Atraumatic and Other (right eye no swelling or subconjunctival edema seem, mild redness on right side of sclera only), good movement of eye both sides.
Respiratory: Clear
Cardiac: S1/S2 and Regular Rhythm; No Murmur or Rub
GI: Soft, Non Tender, Non Distended and Normal Bowel Sounds; No Organomegaly
Rectal: Deferred by Provider
Musculoskeletal: No Clubbing, No Cyanosis and No Edema
Skin: No Rash
Neuro: AO x 3 and Nonfocal/grossly intact
Psych: Calm
#periorbital cellulitis of right eye concerning for developing orbital cellulitis
He feels better, much less pain, only discomfort upon looking to the side. Patient requested pain medicine/pain: As he reported he had high tolerance to Tylenol. Will give short course of as needed tramadol.
Good and significant clinical improvement in last two days, received IV ABx for 3 full days, will do oral ABX to cover MRSA also although risk is low due to absence of trauma or skin opening. Total will be 7 days, taper prednisone
d/w eye doctor Dr Pereira who evaluated the patient on 09/02 at bed side. Ok to taper oral steroid, f/w in office, patient has an appointment this Monday
Status post IV vanco and Unasyn
-CT orbits with Some minor right periorbital soft tissue swelling suggesting periorbital cellulitis.Soft tissue stranding and slight prominence/enlargement of the right medial rectus muscle and CT findings suggesting some right sided proptosis.
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 Unfortunately, other etiologies such as orbital Lymphoma cannot be excluded.
-Tylenol continued for fever and pain
=-CT head normal, no acute finding
- Appreciate Dr Pereira help
# Chronic dizziness
pt was concerned and asked for further studies, was told he had vertigo. He requested MRI brain, i d/w him, recommenced to d/w his doctors as OP since he is still having orbital edema, prefer to let inflammation subside. CT head no acute findings.
Patient was advised to follow with his primary care doctor
#History of Right-Sided Renal Cell Carcinoma s/p Right Nephrectomy
Left Solitary Kidney per patient
#Osteoarthritis
Chronic Pain Syndrome
On weekly methotrexate and daily folic acid supplement
#Current Tobacco Use
Given prescription for nicotine patch
#DVT prophylaxis
-scd. Add SQ heparin
#CODE status
-full code
Total discharge time spent to see the patient, examine the patient, review data and lab results, discuss discharge plan with patient and nursing staff around 65 minutes
Anticipated Discharge: Today
Subjective/Interval History
-
Date of Service: September 04, 2024
No blurred vision, some discomfort while loosing to the side
No headache
no dizziness
no fevers
Objective Data
-
Vital Signs:
Vital Signs
Temp Pulse Resp BP Pulse Ox
97.9 F 59 18 144/79 97
09/04/24 07:00 09/04/24 07:00 09/04/24 07:00 09/04/24 07:00 09/04/24 07:00
I&O
09/03/24 09/04/24 09/05/24
06:59 06:59 06:59
Intake Total 1560 / 1560 480 / 480
Balance 1560 / 1560 480 / 480
[2024-09-04 11:00] VITALS: BP 132/76
[2024-09-04 12:30] VITALS: BP 128/70
--- NOTE | 2024-09-05 06:41 | W.DCSUMMARY ---
Discharge Summary
Discharge Data
Date of Admission: 09/01/24
Date of Discharge: 09/04/24
-
Pending Results: No
Hospital Course
59 years old male presented with pain and swelling involving the right eye. He had a orbital CAT scan that showed preseptal cellulitis without orbital involvement. Patient was started on intravenous antibiotic with intravenous steroid.
Graduate Rn was consulted. He did not have leukocytosis or fever. He did not have headaches. No history of trauma. Right eye pain and swelling started to improve significantly after treatment. He was evaluated by ring making machine operator. His
vision was unimpaired. Graduate Rn recommended to continue course of antibiotic and to taper steroid. Patient reported history of chronic dizziness and requested brain scan. scan of the head did not show acute findings. Patient had
appointment with ophthalmology to be followed soon after discharge. He remained hemodynamically stable and was discharged in a stable condition with good vision in both eyes.
Discharge Plan
-
Patient Disposition: Home (Routine Discharge)
Discharge Diagnosis/Procedures: Right preseptal cellulitis
You are given intravenous antibiotics and steroid therapy. You were seen by an eye doctor.
You were given tramadol(an opioid medicine) avoid taking it while driving or operating machinery due to risk of drowsiness. It may cause constipation.
Diet: As tolerated
Referrals:
Rohit Pereira MD [Active] - 09/06/24
NONE,* [Family Provider] -
Prescriptions:
New
acetaminophen 325 mg Tablet
650 mg PO Q4HPRN PRN (Reason: mild pain/SERNA/temp> 100.4F) Qty: 10 0RF
nicotine 21 mg/24 hr Patch 24 Hour
21 mg transdermal DAILY Qty: 28 0RF
amoxicillin-pot clavulanate 875-125 mg tablet
1 tab PO BID Qty: 8 0RF
sulfamethoxazole-trimethoprim [Bactrim DS] 800-160 mg tablet
1 tab PO BID Qty: 4 0RF
tramadol 50 mg tablet
50 mg PO Q8H PRN (Reason: SEVERE PAIN) Qty: 15 0RF
prednisone 10 mg tablet
10 mg PO DAILY Qty: 3 0RF
Continued
therapeutic multivitamin Tablet
1 tab PO DAILY
methotrexate sodium 2.5 mg Tablet
15 mg PO SA
folic acid 1 mg Tablet
1 mg PO DAILY
Discontinued
ibuprofen [Advil] 200 mg Tablet
600 mg PO BID
Discharge Orders:
Discharge Patient (As Directed); Ordered 09/04/24
Ordered By: Annamaria Aquino
Discharge Date and Time
Discharge Date/Time: 09/04/24 13:48
Print Language: AUSTRIAN
== END 2024-09-04 13:48 | disposition home or self-care (01) | DRG 603 ==
LOC: 1 ACUTE 14:50
PROVIDERS: Physician Assistant; ADMITTING PHYSICIAN Internal Medicine; ATTENDING PHYSICIAN Internal Medicine; CONSULT PHYSICIAN Ophthalmology; EMERGENCY PHYSICIAN Emergency Medicine
DX: L03.213 Periorbital cellulitis (principal); M19.90 Unspecified osteoarthritis, unspecified site; G89.4 Chronic pain syndrome; F17.200 Nicotine dependence, unspecified, uncomplicated; I10 Essential (primary) hypertension; M06.9 Rheumatoid arthritis, unspecified; Z90.5 Acquired absence of kidney
CPT/HCPCS: 70450; 70481; 80053; 85025; 96374; 96375; 99285; 99406; Q9967

== ENCOUNTER 2024-09-12 11:10 | Emergency (ER) | payer MEDICARE, SELFPAY ==
[2024-09-12 11:21] VITALS: BP 147/97
[2024-09-12 11:41] LABS: % Basophils 0.4 % (0-2); % Eosinophils 1.4 % (0-6); % Immature Granulocytes 1.6 % (0-0.5); % Lymphocytes 8.6 % (20.5-51.1); % Monocytes 7.6 % (1.7-9.3); % Neutrophils 80.4 % (42.2-75.2); Absolute Basophils 0.1 10^3/uL (0-0.2); Absolute Eosinophils 0.2 10^3/uL (0-0.7); Absolute Immature Granulocytes 0.2 10^3/uL (0-0.05); Absolute Monocytes 0.9 10^3/uL (0.1-0.6); Absolute Neutrophils 9.1 10^3/uL (1.4-6.5); Hemoglobin 15.2 g/dL (13.0-18.0); Mean Corp Hgb Conc. 35.3 g/dL (33.0-37.0); Mean Corpuscular Hgb 34.9 pg (27.0-31.0); Mean Corpuscular Volume 98.6 fL (80.0-94.0); Mean Platelet Volume 9.2 fL (7.4-10.4); Nucleated Red Blood Cells % 0 % (-); Platelet Count 179 10^3/uL (130-400); Red Blood Cell Count 4.36 10^6/uL (4.70-6.10); Red Cell Dist. Width 13.1 % (11.5-14.5); White Blood Cell Count 11.3 10^3/uL (4.8-10.8)
[2024-09-12 12:00] LABS: COVID-19 Antigen Negative (Negative)
[2024-09-12 12:20] LABS: ALT (SGPT) 26 U/L (0-50); AST (SGOT) 20 U/L (17-59); Albumin 4.2 g/dl (3.5-5.0); Alkaline Phosphatase 74 U/L (38-126); Blood Urea Nitrogen 17 mg/dl (9-20); Calcium 9.2 mg/dl (8.4-10.2); Carbon Dioxide 24 mmol/L (22-30); Chloride 101 mmol/L (98-107); Glucose 153 mg/dl (70-99); Potassium 4.2 mmol/L (3.5-5.1); Sodium 137 mmol/L (135-145); Total Bilirubin 0.9 mg/dl (0.2-1.3); Total Protein 6.7 g/dl (6.3-8.2); eGFR > 60.00
--- NOTE | 2024-09-12 12:52 | ED.GENMED ---
History of Present Illness
<Lena Del Angel PA-C - Last Filed: 09/12/24 18:01>
General
Chief Complaint: Fever
Source: patient
Exam Limitations: none
Time Seen by Provider: 09/12/24 12:51
Nursing documentation reviewed up to this point in time: agreed with
History of Present Illness
History of Present Illness:
59-year-old male with past medical history of hypertension, renal carcinoma status post close right nephrectomy, depression, who presents emergency department today with concerns of diffuse full body rash. Of note, patient was recently admitted to
the hospital for preseptal cellulitis. There is concern for developing orbital cellulitis at this time as patient had chemosis. Patient started on IV antibiotics. He was discharged on September 05 and took amoxicillin and steroids as an outpatient
and states that the amoxicillin and steroids were stopped for 3 days or so before he started to get a rash. Patient states that when he was discharged from the hospital he developed flulike symptoms. His had similar flulike symptoms. Patient
states that he started to feel unwell and had fevers and noted that rash appeared on his right arm. Patient states that the rash spread to his abdomen, back, face, scalp, and groin area. This is never happened to patient before. Patient is
up-to-date on his vaccinations. Patient denies any trouble swallowing, any painful sores in his mouth, any shortness of breath. Patient denies any allergies to any medications. Patient states that the rash is very itchy but is not painful.
Past History
<Lena Del Angel PA-C - Last Filed: 09/12/24 18:01>
Past History
ED Past Medical History: Cancer, GERD and HTN
ED Past Surgical History: Appendectomy and Other
Social History
Tobacco: Non-smoker
Alcohol: None
Drug: None
Personal: Single
Living: with family
Review of Systems
<Lena Del Angel PA-C - Last Filed: 09/12/24 18:01>
Review of Systems
All Other Systems: ROS reviewed and negative except as documented in HPI and ROS
Phy Exam
<Lena Del Angel PA-C - Last Filed: 09/12/24 18:01>
Physical Exam
Physical Exam:
General: Patient is well appearing and in no acute distress; non-toxic
Skin: Diffuse maculopapular rash noted to her lower extremities, scalp, chest, belly, and back, negative nicolosky's sign, no fluid filled vesicles
Head: Normocephalic, atraumatic
Eyes: Sclera non-icteric. EOMs intact.
Cardiac: Patient midly tachycardic otherwise regular rhythm, no murmurs
Peripheral Vascular: No lower extremity swelling or edema
Pulm: Normal respiratory effort, no wheezes, rales, or rhonchi
Abdomen: No abdominal tenderness to palpation
Neuro: CN II-XII intact, no focal neurologic deficits. No meningimus
Psychiatric: Appropriate mood and affect.
Sepsis
<Lena Del Angel PA-C - Last Filed: 09/12/24 18:01>
Sepsis Screening
Sepsis Assessment: Sepsis
Sepsis Screen
Sepsis Screen: Sepsis
Date: 09/12/24
Time: 17:53
Course
<REBECCA Padilla Last Filed: 09/12/24 18:01>
Orders/Labs/Results
Orders:
Orders
09/12/24 11:25
EKG [Electrocardiogram (*1)] Urgent
Reason for Study: Tachycardia
09/12/24 11:26
EKG- Treatment ONCE
09/12/24 11:29
Complete Blood Count/With Diff Urgent
Comprehensive Metabolic Panel Urgent
Influenza A+B Rapid Molecular Urgent
BUNNY Source: Nasal Swab
Specimen Description:
09/12/24 11:30
COVID-19 Antigen Urgent
Source: Nasal Swab
09/12/24 13:24
Acetaminophen [Tylenol] 650 mg PO NOW STA
09/12/24 13:49
Cetirizine HCl [Zyrtec] 10 mg PO NOW STA
09/12/24 13:58
Diphenhydramine [Benadryl] 25 mg IV NOW STA
EPINEPHrine PF [Adrenalin] 0.3 mg IM NOW STA
09/12/24 15:26
Ibuprofen [Motrin] 400 mg PO NOW STA
Abnormal Lab Results
09/12/24
11:29
WBC 11.3 H 10^3/uL
(4.8-10.8)
RBC 4.36 L 10^6/uL
(4.70-6.10)
MCV 98.6 H fL
(80.0-94.0)
MCH 34.9 H pg
(27.0-31.0)
Abs Immat Gran (auto) 0.2 H 10^3/uL
(0-0.05)
Absolute Neuts (auto) 9.1 H 10^3/uL
(1.4-6.5)
Absolute Lymphs (auto) 1.0 L 10^3/uL
(1.2-3.4)
Absolute Monos (auto) 0.9 H 10^3/uL
(0.1-0.6)
Immature Gran % 1.6 H %
(0-0.5)
Neutrophils % 80.4 H %
(42.2-75.2)
Lymphocytes % 8.6 L %
(20.5-51.1)
Glucose 153 H mg/dl
(70-99)
09/12/24 11:29
09/12/24 11:29
Vital Signs
Initial and Last Documented VS:
Initial Vital Signs
Temp Pulse Resp BP Pulse Ox
100.8 F H 100 18 147/97 98
09/12/24 11:21 09/12/24 11:21 09/12/24 11:21 09/12/24 11:21 09/12/24 11:21
Last Documented Vital Signs
Temp Pulse Resp BP Pulse Ox
98.5 F 73 19 132/83 96
09/12/24 15:45 09/12/24 16:15 09/12/24 16:15 09/12/24 16:00 09/12/24 16:15
<Francis Cruz, DO - Last Filed: 09/12/24 14:01>
Orders/Labs/Results
Orders:
Orders
09/12/24 11:25
EKG [Electrocardiogram (*1)] Urgent
Reason for Study: Tachycardia
09/12/24 11:26
EKG- Treatment ONCE
09/12/24 11:29
Complete Blood Count/With Diff Urgent
Comprehensive Metabolic Panel Urgent
Influenza A+B Rapid Molecular Urgent
BUNNY Source: Nasal Swab
Specimen Description:
09/12/24 11:30
COVID-19 Antigen Urgent
Source: Nasal Swab
09/12/24 13:24
Acetaminophen [Tylenol] 650 mg PO NOW STA
09/12/24 13:49
Cetirizine HCl [Zyrtec] 10 mg PO NOW STA
09/12/24 13:58
Diphenhydramine [Benadryl] 25 mg IV NOW STA
EPINEPHrine PF [Adrenalin] 0.3 mg IM NOW STA
09/12/24 15:26
Ibuprofen [Motrin] 400 mg PO NOW STA
Abnormal Lab Results
09/12/24
11:29
WBC 11.3 H 10^3/uL
(4.8-10.8)
RBC 4.36 L 10^6/uL
(4.70-6.10)
MCV 98.6 H fL
(80.0-94.0)
MCH 34.9 H pg
(27.0-31.0)
Abs Immat Gran (auto) 0.2 H 10^3/uL
(0-0.05)
Absolute Neuts (auto) 9.1 H 10^3/uL
(1.4-6.5)
Absolute Lymphs (auto) 1.0 L 10^3/uL
(1.2-3.4)
Absolute Monos (auto) 0.9 H 10^3/uL
(0.1-0.6)
Immature Gran % 1.6 H %
(0-0.5)
Neutrophils % 80.4 H %
(42.2-75.2)
Lymphocytes % 8.6 L %
(20.5-51.1)
Glucose 153 H mg/dl
(70-99)
09/12/24 11:29
09/12/24 11:29
Vital Signs
Initial and Last Documented VS:
Initial Vital Signs
Temp Pulse Resp BP Pulse Ox
100.8 F H 100 18 147/97 98
09/12/24 11:21 09/12/24 11:21 09/12/24 11:21 09/12/24 11:21 09/12/24 11:21
Last Documented Vital Signs
Temp Pulse Resp BP Pulse Ox
98.5 F 73 19 132/83 96
09/12/24 15:45 09/12/24 16:15 09/12/24 16:15 09/12/24 16:00 09/12/24 16:15
Jameslt;Lena Del Angel PA-C - Last Filed: 09/12/24 18:01>
MDM/Problems Addressed
Differential Diagnosis Includes:
Differentials include drug reaction, viral syndrome, meningitis, contact dermatitis,
MDM/Problems Addressed:
59-year-old male presents emergency department today with concerns of a diffuse full body rash in the setting of flulike symptoms and fever. recently take amoxicillin and prednisone however doubt drug reaction. No rash red flag symptoms such as
meningismus/nuchal rigidity, skin blistering, Nikolsky sign, intraoral lesions. Suspect viral syndrome causing patient's rash. Patient was given epinephrine and antihistamines in the emergency department which significantly improved his symptoms.
Rash still present but he feels a lot better. Discussed use of antihistamines at home and discussed how this should resolve within a few days, but also discussed follow-up with dermatology for further evaluation. Patient stable for discharge, case
reviewed with my attending.
<Lena Del Angel PA-C - Last Filed: 09/12/24 18:01>
*Pulse Oximetry
Patient hypoxic: no
*Critical Care Note
Total Time (30-74mins, 75-104mins- exclusive of procedures): Not Applicable
Data Reviewed
Review of Other/Old Records Reveals: Records (Reviewed discharge summary from 09/05/2024)
Source: patient and records
ED Attending Note
<Lena Del Angel PA-C - Last Filed: 09/12/24 18:01>
-
Portions of this chart may have been created with voice recognition software.� Occasional wrong word or��sound alike� substitutions may have occurred due to the inherent limitations of voice recognition software.
<Francis Cruz DO - Last Filed: 09/12/24 14:01>
ED Attending Note
Patient seen and examined by attending physician: Yes
I performed the substantive portion of visit, reviewed & personally made and approve the management plan that is documented in note by myself or CAROLA.: Yes
ED Attending Note:
Seen with PA examined independently 59-year-old male recently admitted with preseptal cellulitis treated with antibiotics and steroids also tramadol, woke up today with an itchy diffuse rash low-grade fever no mucous membrane involvement, no
shortness of breath
Suspect medication effect versus viral exanthem
Discharge Plan
Departure
Patient Disposition: Home (Routine Discharge)
Date of Disposition: 09/12/24
Time of Disposition: 15:37
Patient with high blood pressure during this ER visit?: Yes
Condition: Good
Discharge Problem:
Rash, Acute viral syndrome
Instructions: Fever, Adult (DC), Viral Exanthem ED
Prescriptions:
No Action
therapeutic multivitamin Tablet
1 tab PO DAILY
methotrexate sodium 2.5 mg Tablet
15 mg PO SA
folic acid 1 mg Tablet
1 mg PO DAILY
acetaminophen 325 mg Tablet
650 mg PO Q4HPRN PRN (Reason: mild pain/SERNA/temp> 100.4F) Qty: 10 0RF
nicotine 21 mg/24 hr Patch 24 Hour
21 mg transdermal DAILY Qty: 28 0RF
amoxicillin-pot clavulanate 875-125 mg tablet
1 tab PO BID Qty: 8 0RF
sulfamethoxazole-trimethoprim [Bactrim DS] 800-160 mg tablet
1 tab PO BID Qty: 4 0RF
tramadol 50 mg tablet
50 mg PO Q8H PRN (Reason: SEVERE PAIN) Qty: 15 0RF
prednisone 10 mg tablet
10 mg PO DAILY Qty: 3 0RF
Referrals:
Chet Garcia MD [Active] - Call in 1-3 days for appt
UNKNOWN - PT NOT,INTERVIEWE [Unknown Provider] -
Activity Restrictions/Additional Instructions:
You can nut picker Benadryl over the counter and take 25 mg every 4-6 hours as needed. If this makes you too drowsy, you can instead take Claritin 10 mg once daily.
Please call the attached number to schedule appointment to be evaluated by a arch pad cementer.
PLEASE RETURN TO THE ER SHOULD YOU DEVELOP TROUBLE BREATHING, TROUBLE SWALLOWING, ORAL PAIN, ABDOMINAL PAIN, LIGHTHEADEDNESS, DIZZINESS, INTRACTABLE FEVERS, CHEST PAIN, SHORTNESS OF BREATH, OR ANY OTHER SIGNS OR SYMPTOMS WORRISOME TO YOU.
Interventions
Interventions:
*Risk Screen - Suicide Last Done: 09/12/24 11:21
*General Assessment Last Done: 09/12/24 11:21
*Neglect/Abuse Screening Last Done: 09/12/24 11:21
ED- Fall Risk Assessment Last Done: 09/12/24 13:44
*ED COVID-19 Vaccine History Last Done: 09/12/24 11:21
*Nursing Disposition Last Done: 09/12/24 16:24
ED- Neurological Assessment Last Done: 09/12/24 13:43
ED-Skin Assessment Last Done: 09/12/24 13:43
Discharge Date and Time
Discharge Date/Time: 09/12/24 16:25
Print Language: [place]AST [place]
[2024-09-12 13:37] VITALS: BMI 18.9
[2024-09-12] MEDS: TYLENOL 650 MG PO (13:40)
[2024-09-12 13:45] VITALS: BP 136/88
[2024-09-12] MEDS: ZYRTEC 10 MG PO (13:56)
[2024-09-12] MEDS: ADRENALIN 0.3 MG IM (14:10)
[2024-09-12] MEDS: BENADRYL 25 MG IV (14:10)
[2024-09-12 14:19] VITALS: BP 143/85
[2024-09-12 15:00] VITALS: BP 136/74
[2024-09-12] MEDS: MOTRIN 400 MG PO (15:31)
[2024-09-12 16:00] VITALS: BP 132/83
== END 2024-09-12 16:25 | disposition home or self-care (01) ==
LOC: EMR 11:10
PROVIDERS: Emergency Medicine; EMERGENCY PHYSICIAN Emergency Medicine
DX: R21 Rash and other nonspecific skin eruption (principal); B34.9 Viral infection, unspecified; R00.0 Tachycardia, unspecified; Z11.52 Encounter for screening for COVID-19; I10 Essential (primary) hypertension; K21.9 Gastro-esophageal reflux disease without esophagitis; Z85.528 Personal history of other malignant neoplasm of kidney
CPT/HCPCS: 99284; 96374; 96372; 80053; 85025; 87502; 87811; 93005